=== PATIENT | female | born 1970 | race Caucasian/White ===

== ENCOUNTER 2019-06-28 19:37 | Emergency (ER) | payer OTHER, SELFPAY ==
[2019-06-28 20:07] LABS: #Basophils 0.1 thou/uL (0.0-0.2); #Eosinphils 0.1 thou/uL (0.0-0.7); #Lymphocytes 1.9 thou/uL (1.20-3.40); #Monocytes 0.7 thou/uL (0.11-0.59); #Neutrophils 6.3 thou/uL (1.40-6.50); %Eosinophils 1.4 % (0.0-10.0); %Lymphocytes 21.4 % (21.0-51.0); %Monocytes 7.2 % (0.0-10.0); %Neutrophils 68.9 % (42.0-75.0); Hemoglobin 16.4 g/dL (12.0-16.0); Mean Corpuscular Hemoglobin 33.1 pg (27.0-31.0); Mean Corpuscular Volume 97.3 fL (78.0-98.0); Mean Platelet Volume 7.9 fL (7.4-10.4); Platelet Count 223 thou/uL (130-400); Red Blood Cell (RBC) Count 4.94 mill/uL (4.20-5.40); White Blood Cell (WBC) Count 9.1 thou/uL (4.8-10.8)
[2019-06-28 20:09] LABS: Bilirubin Moderate (Negative); Blood, Urine Trace (Negative); Glucose, Urine (Dipstick) Negative (Negative); Leukocyte Negative (Negative); Nitrite Negative (Negative); Protein, Urine (Dipstick) 30 mg/dL (Neg-Trace)
[2019-06-28 20:10] LABS: MDiff Complete? YES; Manual Diff?? NO
[2019-06-28] MEDS ORDERED: Ondansetron PF 4 MG/2 ML Vial ONE ×2 (20:11→21:41)
[2019-06-28 20:12] LABS: Clarity Hazy (Clear)
[2019-06-28 20:17] LABS: Bacteria/HPF 2+ HPF (None Seen); Mucous/LPF 1+ LPF (<2+); RBC/HPF 0-3 HPF (0-3); Transitional Epithelial 0-3 HPF (None Seen)
[2019-06-28 20:22] LABS: ALT (SGPT) 11 U/L (8-55); AST (SGOT) 12 U/L (5-34); Albumin 4.4 g/dL (3.5-5.0); Alkaline Phosphatase 44 U/L (40-110); Anion Gap 17 mmol/L (10-20); BUN (Urea Nitrogen) 19 mg/dL (7.0-18.7); Bilirubin, Total 0.5 mg/dL (0.2-1.2); Calc. Creatinine Clearance 0 mL/min (70-130); Calcium 9.3 mg/dL (7.8-10.44); Carbon Dioxide 25 mmol/L (22-29); Chloride 101 mmol/L (98-107); Estimated GFR-MDRD 80; Globulin 2.8 g/dL (2.4-3.5); Glucose 108 mg/dL (70-105); Lipase 19 U/L (8-78); Potassium 3.2 mmol/L (3.5-5.1); Protein, Total 7.2 g/dL (6.0-8.3); Sodium 140 mmol/L (136-145)
[2019-06-28] MEDS ORDERED: Metoclopramide HCl 10 MG/2 ML VIAL ONE (23:13)
[2019-06-28] MEDS ORDERED: Lidocaine Viscous Sol 2% 15 ml UD Cup ONE (23:14)
[2019-06-28] MEDS ORDERED: Mag-Al Plus 1200 MG/1200 MG/120 MG/30 ML UDCUP ONE (23:14)
--- NOTE | 2019-06-28 23:24 | CT ---
CT ABDOMEN AND PELVIS WITHOUT CONTRAST: Date: 06-28-[address] of the abdomen and pelvis was performed for evaluation of left flank pain. No oral or IV co ntrast was used. FINDINGS: A small hiatal hernia is suggested and there is evidence of prior gastric surgery. The lung bases are clear. The liver, spleen, pancreas, kidneys, adrenal glands and abdominal aorta appear normal within the limitations of the noncontrast study. There has been a prior cholecystectomy. Regarding the urinary tract, I do not see any renal calculi or hydronephrosis. Each ureter is normal in size. A small calcification deep in the pelvis on the left side seems a bit too posterolateral to be in the ureter and the left ureter is absolutely not dilated at all. CT of the pelvis shows a calcified uterine fibroid. Otherwise, no free fluid or inflammatory changes were seen. The patient's bowel shows no distention or wall thickening. Degenerative changes are seen in the patient's lumbar spine with spinal stenosis in particularly the lower lumbar levels. IMPRESSION: No acute abdominal or pelvic findings to explain the patient's pain. POS: HOME
== END 2019-06-28 23:20 | disposition home or self-care (01) ==
LOC: BURERS 19:37
DX: R10.9 Unspecified abdominal pain (principal); R11.10 Vomiting, unspecified; F17.210 Nicotine dependence, cigarettes, uncomplicated; Z79.891 Long term (current) use of opiate analgesic
CPT/HCPCS: 74176; 80053; 81003; 81015; 83605; 83690; 85025; 96361; 96374; 96375; 96376; J2405; J2765